=== PATIENT | female | born 1940 | race Caucasian/White ===

== ENCOUNTER 2024-04-10 14:21 | Emergency (ER) | payer MEDICARE ==
[2024-04-10 14:23] VITALS: BP 136/80; PULSE 81
== END 2024-04-10 14:45 ==
LOC: LL.ED 14:21
DX: L50.9 Urticaria, unspecified (principal); I10 Essential (primary) hypertension; E78.00 Pure hypercholesterolemia, unspecified; E03.9 Hypothyroidism, unspecified; Z79.899 Other long term (current) drug therapy; Z88.0 Allergy status to penicillin
CPT/HCPCS: 99282; 99283

== ENCOUNTER 2024-10-17 12:03 | Emergency (ER) | payer MEDICARE ==
[2024-10-17 13:53] VITALS: BP 148/88; PULSE 90
== END 2024-10-17 13:50 | disposition home or self-care (01) ==
LOC: LL.ED 12:03
DX: S79.911A Unspecified injury of right hip, initial encounter (principal); I10 Essential (primary) hypertension; E78.00 Pure hypercholesterolemia, unspecified; E03.9 Hypothyroidism, unspecified; Z79.899 Other long term (current) drug therapy; Z88.0 Allergy status to penicillin; W19.XXXA Unspecified fall, initial encounter
CPT/HCPCS: 99283; 99284

== ENCOUNTER 2025-03-22 15:07 | Emergency (ER) | payer MEDICARE ==
[2025-03-22 17:17] VITALS: BP 159/93; PULSE 71
== END 2025-03-22 17:23 | disposition home or self-care (01) ==
LOC: LL.ED 15:07
DX: S09.90XA Unspecified injury of head, initial encounter (principal); S60.222A Contusion of left hand, initial encounter; I10 Essential (primary) hypertension; E78.00 Pure hypercholesterolemia, unspecified; E03.9 Hypothyroidism, unspecified; Z79.899 Other long term (current) drug therapy; Z79.890 Hormone replacement therapy; Z88.0 Allergy status to penicillin; W01.0XXA Fall on same level from slipping, tripping and stumbling without subsequent striking against object, initial encounter
CPT/HCPCS: 70450; 73130-LT; 99284